=== PATIENT | male | born 1940 | race Caucasian/White ===

== ENCOUNTER 2020-12-25 15:09 | Emergency (ER) | payer SELFPAY ==
[~2020-12-25] VITALS: Ht 162.6 cm; Wt 65.8 kg
--- NOTE | 2020-12-25 15:09 | NUR ---
Placed in room 03 . Placed on transfer and line up worker, blood pressure machine and pulse oximeter. To gown for exam. Side rails up.
--- NOTE | 2020-12-25 15:09 | NUR ---
Code stroke called at this time
--- NOTE | 2020-12-25 15:10 | NUR ---
Pt brought by , A&Ox4, pt presents to ER with numbness on R side of body and mild facial drop on R side of face, also family noted drooling prior arrival, symptoms started 20 minutes ago, per patient he has difficulty finding words, speech is slower than usual, no drift noted on upper or lower extremities, pt denies blurred vision, afebrile, VSS at this time, Dr Pelaez notified.
--- NOTE | 2020-12-25 15:11 | NUR ---
Rohan Montoya permission to 911 Addendum: 12/25/[address] at [email or web address] not working at this time, pt being sent to [facility]
--- NOTE | 2020-12-25 15:11 | NUR ---
Dr Pelaez evaluating patient at bedside
--- NOTE | 2020-12-25 15:14 | NUR ---
Daily wynne in [facility] - 12/25/20 at 1523 by SDEDAFJ Patient to [facility] 03 to ella for evaluation. Side rails up.
[2020-12-25 15:15] VITALS: BP_SYST 151
--- NOTE | 2020-12-25 15:20 | NUR ---
Called [facility] to give report, this nurse was transfer to Neurologist Dr Murillo , report given by Dr Pelaez.
[2020-12-25 15:25] VITALS: BP_SYST 151
--- NOTE | 2020-12-25 15:25 | NUR ---
Pt transported to [facility] at this time for stroke symptoms.
--- NOTE | 2020-12-25 15:25 | NUR ---
Patient to be transferred to [facility] . Is being transferred due to higher level of care. Receiving facility has accepting physician and available space. ER physician has signed transfer form. Patient or responsible democrat has agreed to transfer .Patient belongings inventoried and will be sent with patient. Copy of nursing notes, lab reports, EKG, Physicians Orders and X-rays to be sent with patient. Report called to Dr Murillo at receiving facility. Receiving physician is Dr Murillo .
== END 2020-12-25 15:25 | disposition short-term general hospital (02) ==
LOC: SED 15:09
DX: R29.810 Facial weakness (principal); I10 Essential (primary) hypertension
CPT/HCPCS: 99285